=== PATIENT | female | born 1995 | race American Indian/Alaskan Native ===

== ENCOUNTER 2021-12-26 08:39 | Emergency (ER) | payer OTHER ==
[2021-12-26] MEDS ORDERED: SODIUM CHLORIDE 0.9% 500 ML INFUS.BAG IV ONE (09:04)
[2021-12-26] MEDS ORDERED: ONDANSETRON 4 MG/2 ML VIAL IVPUSH ONE ×2 (09:04→10:39)
[2021-12-26] MEDS ORDERED: ONDANSETRON 4 MG/2 ML VIAL ONE ×2 (09:06→10:56)
[2021-12-26 09:19] VITALS: BMI 25.6
[2021-12-26 09:23] LABS: BASO % 0.1 % (0-2.0); HEMOGLOBIN 13.4 GM/dL (10.7-15.3); LYMPH % 9.2 % (8-40); MCH 27.4 pg (25.7-33.7); MCHC 33.4 g/dl (32.0-36.0); MEAN PLT VOLUME 8.6 fl (7.5-11.1); MONO % 4.3 % (3.8-10.2); NEUT % 86.4 % (42.8-82.8); PLATELET COUNT 282 10^3/uL (134-434); RBC 4.88 M/mm3 (3.60-5.2); RDW 12.7 % (11.6-15.6); WHITE BLOOD COUNT 10.5 K/mm3 (4.0-10.0)
[2021-12-26] MEDS ORDERED: MAG HYDROX/AL HYDROX/SIMETH 30 ML UNIT-DOSE CUP PO ONE (09:42)
[2021-12-26] MEDS ORDERED: FAMOTIDINE 20 MG/50 ML IVPB 20 MG/50 ML MG IVPB ONE (09:42)
[2021-12-26] MEDS ORDERED: METOCLOPRAMIDE HCL INJECTION 10 MG/2 ML VIAL IVPUSH ONE (09:42)
[2021-12-26 09:45] LABS: BLOOD UREA NITROGEN 11.3 mg/dL (7-18); CALCIUM 8.9 mg/dL (8.5-10.1)
[2021-12-26 09:48] LABS: CREATININE 0.9 mg/dL (0.55-1.3)
[2021-12-26 09:49] LABS: BILIRUBIN,TOTAL 0.6 mg/dL (0.2-1); TOT PROT 7.5 g/dl (6.4-8.2)
[2021-12-26] MEDS ORDERED: MAG HYDROX/AL HYDROX/SIMETH 30 ML UNIT-DOSE CUP ONE (09:49)
[2021-12-26] MEDS ORDERED: FAMOTIDINE 10 MG/ML VIAL IVPB ONE (09:49)
[2021-12-26 09:56] LABS: HCG,QUALITATIVE URINE Negative
[2021-12-26 09:59] LABS: URINE APPEARANCE CLEAR; URINE COLOR DK YELLOW
[2021-12-26 10:00] LABS: URINE GLUCOSE (UA) TRACE (NEGATIVE)
[2021-12-26 10:01] LABS: URINE KETONE 1+ (NEGATIVE); URINE PROTEIN 3+ (NEGATIVE)
[2021-12-26 10:02] LABS: EPI CELLS 63 /uL (0-25.1); HYALINE CASTS 20 /uL (0-3.1); URINE BACTERIA 92 /uL (0-1359); URINE BILIRUBIN NEGATIVE (NEGATIVE); URINE LEUK ESTERASE NEGATIVE (NEGATIVE); URINE NITRITE NEGATIVE (NEGATIVE); URINE RBC 17 /uL (0-23.9); URINE WBC 9 /uL (0-25.8)
[2021-12-26] MEDS ORDERED: METOCLOPRAMIDE HCL INJECTION 10 MG/2 ML VIAL ONE (10:15)
[2021-12-26 11:23] VITALS: BP 122/77; PULSE 67; TEMP 98.2
== END 2021-12-26 12:01 | disposition home or self-care (01) ==
LOC: JER 08:39
PROC: 3E033GC Introduction of Other Therapeutic Substance into Peripheral Vein, Percutaneous Approach (ICD-10-PCS; principal; 2021-12-26)
PROC: 3E033GC Introduction of Other Therapeutic Substance into Peripheral Vein, Percutaneous Approach (ICD-10-PCS; 2021-12-26)
PROC: 3E033GC Introduction of Other Therapeutic Substance into Peripheral Vein, Percutaneous Approach (ICD-10-PCS; 2021-12-26)
PROC: 3E033GC Introduction of Other Therapeutic Substance into Peripheral Vein, Percutaneous Approach (ICD-10-PCS; 2021-12-26)
DX: R11.2 Nausea with vomiting, unspecified (principal); R10.13 Epigastric pain
CPT/HCPCS: 36415; 80053; 81003; 84703; 85025; 87086; 99284-25